=== PATIENT | female | born 1980 | race Caucasian/White ===

== ENCOUNTER 2019-01-04 01:56 | Day surgery (SDC) | payer MEDICAID ==
[2014-12-28 14:29] VITALS: Ht 172.7 cm; Wt 94.3 kg
[2019-01-04] VITALS (8 sets, daily range): BP systolic 101–123; BP diastolic 70–90
[~2019-01-04] VITALS: Ht 172.7 cm; Wt 94.3 kg
[~2019-01-04 01:56] MED LIST: ALB17R INH; ALBUDR INH; ALLO100T70 PO; AMIT100T53 PO; AMLO-127 PO; AMO875 PO; AMOX-559 PO; ATOR20TA22 PO; ATR10 PO; AZI250 PO; CEP500 PO; CETI-176 PO; CETI10CA8 PO; CHOL10005 PO; CIPR-326 PO; CIPR-345 PO; CLON-327 PO; CYCL10TA29 PO; DIAZ-305 PO; DICL-195 PO; DOXY-181 PO; EPIDRIN PO; FENO145T36 PO; GABA-549 PO; HCTZ25 PO; HTCZ; HYDR-3087 PO; HYDR-317 PO; HYDR-385 PO; HYDR12.561 PO; HYDR200T77 PO; IBU200 PO; IBUP400T13 PO; IBUP800T37 PO; INDO-23 PO; IPRA3AMP10 IH; KET10 PO; LANS30CA70 PO; LEVO-85 PO; LISI-362 PO; LOR5 PO; LOR5/325 PO; LOSA50TA80 PO; MAGN27TA6 PO; METF-450 PO; METO-257 PO; MOMR; MULT-820 PO; NAPR220C12 PO; NIAC500T85 PO; NORG1TAB2 PO; OMEP-125 PO; OMEP-218 PO; OMEP40CA48 PO; OXYC-865 PO; PARO-46 PO; PARO30TA71 PO; POTA-53 PO; POTA10CA40 PO; POTA99TA6 PO; PRE20 PO; PRED20TA6 PO; PREN-67 PO; RANI-318 PO; SERT-173 PO; SERT-181 PO; SITA100T PO; SUCR1TAB85 PO; TIZ4 PO; TIZA6CAP3 PO; TIZA6CAP7 PO; TRA50 PO; TRAZ150T61 PO; TRIA0.2597 PO; VITA150T2 PO; [UNRECOGNIZED DRUG - OTHER]; [UNRECOGNIZED DRUG - OTHER] PO
[2019-01-04] MEDS ORDERED: NORMOSOL R SOLN(*) 1000 ML BAG 1,000 ML IV PRN (06:15)
[2019-01-04] MEDS ORDERED: CELECOXIB 200 MG CAP PO ONE (06:15)
[2019-01-04] MEDS ORDERED: LIDOCAINE/SOD BICARB 8.4% SYR ID ONE (06:15)
[2019-01-04] MEDS ORDERED: ceFAZolin(*) 2GM/D5W 50ML 50 ML IVPB ONE (06:15)
[2019-01-04] MEDS ORDERED: MIDAZOLAM 2 MG/2 ML VIAL IVP PRN (06:15)
[2019-01-04] MEDS ORDERED: ROPIVACAINE 0.2% 20 ML VIAL ONE (06:37)
[2019-01-04] MEDS ORDERED: FAMOTIDINE 20 MG TAB PO ONE (08:00)
[2019-01-04] MEDS ORDERED: fentaNYL CITR 100 MCG/2 ML AMP ONE ×2 (09:06→10:00)
[2019-01-04] MEDS ORDERED: DEXAMETHASONE SOD PHOS 10MG/ML ONE (09:06)
[2019-01-04] MEDS ORDERED: ONDANSETRON 4 MG/2 ML VIAL ONE (09:06)
[2019-01-04] MEDS ORDERED: PROPOFOL EMUL(*) 10MG/ML 20 ML 40 ML ONE (09:06)
[2019-01-04] MEDS ORDERED: TRAM-420 PO (10:10)
[2019-01-04] MEDS ORDERED: traMADol 50 MG TAB ONE (10:26)
--- NOTE | 2019-01-04 10:43 | NUR ---
1043- PT BROUGHT TO STEP DOWN, BAY 9, PT IS A/O X 3, PT IS COOPERATIVE WITH CARES AND STAFF, NOTED JUAN BANDAGE DRESSING TO LEFT KNEE CDI, VSS, PT HAS TOLERATED CRACKERS AND JUICE IN PACU, DENIES NAUSEA, PAIN 5/10 ON SCALE TO LEFT KNEE, PT REPORTS TOLERABLE PAIN RATE, PT IN SF POSITION, SBAR REPORT FROM Carrie PEDRAZA RN 1053- CRYO CUFF IN PLACE TO LEFT KNEE, BOYFRIEND DANYELL AT BEDSIDE
--- NOTE | 2019-01-04 11:25 | NUR ---
1100- PT IN SF POSITION, MAINTAINING SATS, RESPIRATIONS AND AIRWAY ON RA 1125- REVIEWED D/C INSTRUCTIONS WITH PT, BOYFRIEND DANYELL AND FATHER 1137- SITTING VSS, PT DENIES ANY NAUSEA OR DIZZINESS 1141- STANDING VSS, PT DENIES ANY NAUSEA OR DIZZINESS, PT UNABLE TO STAND ON HER OWN D/T ATAXIA, BOYFRIEND DANYELL HELPING WITH STANDING AND TRANSFERS PER PT COMFORT/REQUEST 1142- PT WHEELCHAIRED TO RESTROOM ACCOMPANIED BY BOYFRIENNash CHILD 1145- PT BACK FROM RESTROOM, REPORTS 1 VOID WITHOUT ISSUE, PT DRESSED 1153- IV D/C WITH CATH INTACT, PT TOLERATED WELL, PRESSURE DRESSING APPLIED WITH GAUZE AND COBAND 1200- PT WHEELCHAIRED OUT TO PARKING LOT VIA PERSONAL WC, PT HAD CRYO CUFF IN PLACE, PT INTO VEHICLE WITH ASSIST X 1, PT WAS SENT HOME WITH GOODY BAG WITH SNACKS AND EMESIS BAGS
--- NOTE | 2019-01-04 12:35 | OPERATIVE REPORT 1 ---
EVENT DATE: January 04, 2019 SURGEON: Gabe Bower MD ANESTHESIOLOGIST: David Hobson MD ANESTHESIA: General. GRADUATE STUDIES DEAN: Woody Russell PA-C PREOPERATIVE DIAGNOSIS Left knee medial and patellofemoral compartment chondromalacia and possible medial meniscus tear. 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 PROCEDURE PERFORMED Left knee arthroscopy with debridement of patella and lateral compartment chondromalacia. IMPLANTS None. SPECIMENS None. COMPLICATIONS None. ESTIMATED BLOOD LOSS Minimal. DESCRIPTION OF PROCEDURE The patient was brought to the OR after receiving appropriate preoperative antibiotic and Dr. Hobson performed general anesthesia. Left thigh tourniquet was placed. Left lower extremity prepped and draped in the usual sterile fashion. The limb was exsanguinated. Tourniquet was inflated to 50 mmHg. Lateral portal was established, scope placed and the medial portal established under arthroscopic visualization. Medial compartment was entered and we evaluated the cartilage and this was intact in the femur and the tibia. Meniscus was extensively probed and noted to be intact. Medial gutter showed no loose bodies. Patellofemoral joint was entered. We noted no lesion of the trochlea but there was grade 3 fissuring and flap tear of the central pole and adjacent medial and lateral facets at the central inferior portion of the patella. This was debrided down to stable base with a shaver. Lateral gutter showed no loose bodies. Notch showed intact ACL and PCL. Lateral compartment was entered. Meniscus was extensively probed and there was no lesion. Posteriorly and central medially, there was grade 3 chondromalacia, fissuring and flap tearing of the plateau and this was debrided down to a stable base. The central weightbearing surface of the lateral femoral condyle showed some grade 2 changes and this was debrided down to a stable base with a shaver. Instrumentation was removed. Portals were closed subcutaneously with 4-0 Monocryl followed by Steri-Strips and portals were injected with ropivacaine followed by compressive dressing. The patient was extubated and taken to recovery in stable condition. Tylenol and Tramadol was recommended for pain. Dressings can be changed in two days. We will start protocol therapy. We will follow her up in nine days in our [facility]. KATHY
== END 2019-01-04 10:43 | disposition home or self-care (01) ==
LOC: OR 01:56
PROVIDERS: ATTEND Orthopaedic Surgery
DX: M94.262 Chondromalacia, left knee (principal); E11.9 Type 2 diabetes mellitus without complications
CPT/HCPCS: 29877; 36415; 36416; 82948; 84703; J1100; J2405; J2704; J2795; J3010; J0690